=== PATIENT | female | born 1950 | race Two or more races ===

== ENCOUNTER → 2018-04-16 | Outpatient (CLI) | payer OTHER ==
[2013-10-14 21:40] VITALS: BP 182/83
--- NOTE | 2018-04-17 09:09 | RAD ---
DATE: 04/16/2018 EXAM: MAMMO FABIOLA SCREENING BILATERAL HISTORY: Routine screening COMPARISON: 07/05/2015 This study was interpreted with the benefit of Computerized Aided Detection (CAD). Breast Density: SCATTERED The breast parenchyma shows scattered fibroglandular densities. Breast parenchyma level B. FINDINGS: 2-D and 3-D tomosynthesis imaging was performed in CC and MLO projections. No new or enlarging breast densities are seen. Scattered benign type calcifications are present. No malignant type microcalcifications have developed. IMPRESSION: There is no mammographic evidence of malignancy in either breast. BI-RADS CATEGORY: 2 BENIGN FINDING(S) RECOMMENDED FOLLOW-UP: 12M 12 MONTH FOLLOW-UP PQRS compliance statement: Patient information was entered into a reminder system with a target due date for the next mammogram. Mammography is a sensitive method for finding small breast cancers, but it does not detect them all and is not a substitute for careful clinical examination. A negative mammogram does not negate a clinically suspicious finding and should not result in delay in biopsying a clinically suspicious abnormality. "Our facility is accredited by the [employer] Mammography Program."
== END | disposition home or self-care (01) ==
LOC: MAMMO 10:26
PROVIDERS: ATTEND Family Medicine
DX: Z12.31 Encounter for screening mammogram for malignant neoplasm of breast (principal)
CPT/HCPCS: 77063; 77067

== ENCOUNTER → 2019-04-17 | Outpatient (CLI) | payer MEDICARE, OTHER ==
[2013-10-14 21:40] VITALS: BP 182/83
--- NOTE | 2019-04-17 11:44 | RAD ---
Examination: 1. Bilateral digital diagnostic mammogram. 2. Limited left breast ultrasound. INDICATION: 68-year-old Montenegrin-speaking woman due for screening presents with a palpable lump in the left breast noticed over the past 3 weeks. COMPARISON: 04/16/2018 bilateral mammogram TECHNIQUE: CC and MLO views of both breasts were obtained with 2-D and 3-D technique and reviewed with computer-aided detection. Thereafter, targeted ultrasound of the left periareolar breast was performed. FINDINGS: Bilateral mammogram: Scattered fibroglandular densities. Negative right mammogram. Palpable marker in the periareolar left breast as indicated with a triangular marker overlies an isodense, partially circumscribed partly obscured 11 mm oval mass in the subareolar left breast whose appearance on the current study represents a change from the previous exam. Limited left breast ultrasound: Targeted ultrasound left periareolar breast identifies an antiparallel 11 mm superficial mass at the 1:00 position 1 cm from the nipple that correlates with the mammographic finding. This is suspicious. Biopsy is recommended. Sonographic survey left axilla reveals no adenopathy. IMPRESSION: Suspicious 11 mm mass in the left 11:00 position 1 cm from the nipple. Ultrasound-guided core needle biopsy is recommended. Discussed with patient and her through the use of a telephone interpreting service. BI-RADS Category 4 Findings suspicious for malignancy. Biopsy recommended. Patient entered into a reminder system with target due date for next mammogram.
== END | disposition home or self-care (01) ==
LOC: MAMMO 09:29
PROVIDERS: ATTEND Family Medicine
DX: R92.8 Other abnormal and inconclusive findings on diagnostic imaging of breast (principal)
CPT/HCPCS: 76641; 77066; G0279; 77062

== ENCOUNTER → 2019-04-29 | Outpatient (CLI) | payer MEDICARE ==
[2013-10-14 21:40] VITALS: BP 182/83
--- NOTE | 2019-04-29 12:32 | RAD ---
Examination: 1. Ultrasound-guided left breast core needle biopsy. 2. Left digital postprocedure mammogram. INDICATION: 68-year-old woman with a palpable lump in the periareolar left breast recommended for ultrasound-guided biopsy. COMPARISON: Left diagnostic mammogram of 04/17/2019 and left breast ultrasound of the same day. FINDINGS: Informed consent was obtained and an appropriate procedural pause observed. Patient was accompanied by her Japanese speaking daughter at this visit. Patient herself is Ukrainian-speaking but understands some Japanese. Using standard sterile technique, ultrasound guidance and local anesthesia, two 14-gauge core biopsy samples were obtained of the 11 mm antiparallel oval hypoechoic mass in the subareolar left breast and an S-shaped biopsy marker was deployed. Some brisk oozing was observed through the biopsy guide after the first biopsy sample so additional biopsy samples were not obtained beyond the second sample. The needle and biopsy marker deployment device was removed and hemostasis ensured with direct breast compression for 10 minutes after which the puncture site was dressed and a 2 view postprocedure mammogram was obtained. The left post procedure mammogram in the CC and MLO projections shows satisfactory deployment of the biopsy marker at the deep aspect of the subareolar left breast mass with no postbiopsy hematoma evident. The breast parenchyma is composed of scattered fibroglandular densities. Following confirmation of satisfactory biopsy marker placement, postprocedure instructions were reviewed and the patient discharged in stable condition to follow up with her primary care physician. IMPRESSION: 1. Successful ultrasound-guided left breast core needle biopsy of a suspicious mass in the subareolar left breast. Pathology results are pending. An addendum will be issued once pathology results become available. 2. Successful deployment of a biopsy marker in the deep aspect of the palpable mass in the periareolar left breast. No apparent postbiopsy hematoma. Electronically signed by: Lee Ann Marcum MD (04/29/2019 12:29 PM) [id number]
--- NOTE | 2019-05-01 17:06 | PATHOLOGY ---
[facility] Accession Number: [id number] . 01 Material submitted: . breast - LEFT BREAST 10C 1CMFN. Modifiers: left, 10:00 . Clinical history: . Left breast mass . 02 Diagnosis: Breast tissue, left breast 10:00 needle biopsies: - INVASIVE DUCTAL CARCINOMA WITH LOBULAR FEATURES, GRADE 2. SEE COMMENT. - DUCTAL CARCINOMA IN SITU, CRIBRIFORM TYPE, INTERMEDIATE GRADE. LBQ 05/01/2019 1507 Local . 02 Comment: Sections of the left breast mass at 10:00 needle biopsy reveal an invasive mammary carcinoma. The tumor cells are predominantly present in small solid nests and cords and show only focal tubule formation. The tumor is associated with a reactive desmoplastic stroma. Tumor cells show moderate nuclear pleomorphism and only occasional mitotic figures. There is associated intermediate grade cribriform ductal carcinoma in situ. The invasive carcinoma measures up to 0.7 cm in greatest dimension on the glass slide. There are no tumor associated calcifications. There is no lymphovascular tumor invasion. An immunoperoxidase stain for E-cadherin is obtained on block A1 and yields the following results: . E-cadherin (A1): Tumor cells positive . The morphologic and immunophenotypic findings are supportive of a diagnosis of an invasive ductal carcinoma with lobular features, grade 2. The case is also examined by Dr. Fine, who concurs with the diagnosis. Breast prognostic studies will be obtained, the results of which will be reported separately. (JPM/db; 04/30/2019) . Special stain performed: Immunoperoxidase stain for E-cadherin on A1. . 02 Electronically signed: . Vamshi Fernandes MD, Pathologist NPI- [id number] . 01 Gross description: . The specimen is received in formalin, labeled "Elfega Terrence, left breast". The specimen is additionally labeled on the requisition as, "left breast 10:00 1 cm from nipple". Received are two needle cores of fibrofatty tissue measuring 1.4 x 0.4 x 0.2 cm in aggregate dimensions. The specimen is submitted entirely in cassettes A1 and A2. The cold ischemic time is 5 minutes. The total formalin fixation time is 12 hours and 40 minutes. (CAA; 04/29/2019) QAC/QAC 04/29/2019 1527 Local . 02 Pathologist provided ICD-10: C50.912, D05.12 . 02 CPT . 649213, [id number] Specimen Comment: A courtesy copy of this report has been sent to [phone] Specimen Comment: [id number], Specimen Comment: Report sent to ,DR MARTELL / DR RICARDO Performed at: 01 [facility] [address], [place], [place] [id number] MD Osman Dow MD Phone: [phone] Performed at: 02 [facility] [address], [place] [id number] MD Vamshi Fernandes MD Phone: [phone]
== END ==
LOC: US 10:11
PROVIDERS: ATTEND Surgery
DX: N63.20 Unspecified lump in the left breast, unspecified quadrant (principal); C50.912 Malignant neoplasm of unspecified site of left female breast
CPT/HCPCS: 19083; 77065; 88305; 88342; C1713; 19081; 76942

== ENCOUNTER → 2019-06-04 | Outpatient (CLI) | payer MEDICARE ==
[2013-10-14 21:40] VITALS: BP 182/83
[~2019-06-04] MED LIST: ALBU2.5V8 INH; ATOR40TA59 PO; FLUT9.9S NS; GLIM4TAB PO; HYDR-3164 PO; LISI10TA2 PO; METF1000 PO; PIOG45TA40 PO
[2019-06-04 14:14] LABS: BASO # 0.1 x10^3/uL (0.0-0.2); BASO % 1 % (0-3); EOS # 0.1 x10^3/uL (0.0-0.7); EOS % 1 % (0-3); HEMATOCRIT 35.9 % (36.0-47.0); HEMOGLOBIN 12.1 g/dL (12.0-15.5); LYMPH # 2.5 x10^3/uL (1.0-4.8); LYMPH % 33 % (24-48); MEAN CORPUSCULAR HEMOGLOBIN 31 pg (25-35); MEAN CORPUSCULAR HGB CONC 34 g/dL (31-37); MEAN CORPUSCULAR VOLUME 92 fL (79-100); MONO # 0.5 x10^3/uL (0.0-1.1); MONO % 7 % (0-9); NEUT # 4.3 x10^3/uL (1.8-7.7); NEUT % 58 % (31-73); PLATELET COUNT 224 x10^3/uL (140-400); RED BLOOD COUNT 3.93 x10^6/uL (3.50-5.40); RED CELL DISTRIBUTION WIDTH 14.3 % (11.5-14.5); WHITE BLOOD COUNT 7.4 x10^3/uL (4.0-11.0)
[2019-06-04 14:23] LABS: ALBUMIN 3.7 g/dL (3.4-5.0); CALCIUM 9.4 mg/dL (8.5-10.1); CREATININE 0.6 mg/dL (0.6-1.0); GFR 99.4; POTASSIUM 4.1 mmol/L (3.5-5.1)
[2019-06-05 05:10] LABS: HEMOGLOBIN A1C 8.7 % (4.8-5.6)
== END | disposition home or self-care (01) ==
LOC: SURGPAT 13:30
PROVIDERS: ATTEND Surgery
DX: Z01.818 Encounter for other preprocedural examination (principal); C50.912 Malignant neoplasm of unspecified site of left female breast; Z88.8 Allergy status to other drugs, medicaments and biological substances
CPT/HCPCS: 36415; 80048; 82040; 83036; 85025

== ENCOUNTER 2019-06-09 07:34 | Day surgery (SDC) | payer MEDICARE ==
[~2019-06-09] VITALS: Ht 152.4 cm; Wt 79.0 kg
[~2019-06-09 07:34] MED LIST changes: -FLUT9.9S NS; -HYDR-3164 PO; +HYDROmorphone 2 MG/ML VIAL IV PRN; +LIDOCAINE 1% PF 2 ML VIAL. ID PRN; +MORPHINE SULFATE 2 MG/ML VIAL. IV PRN; +ONDANSETRON PF 4 MG/2 ML VIAL. IV PRN; +PROCHLORPERAZINE 10 MG/2 ML VIAL. IV PRN; +fentaNYL PF VIAL 100 MCG/2 ML VIAL IV PRN
[2019-06-09] MEDS ORDERED: FLUT9.9S NS (07:59)
[2019-06-09] MEDS: INSULIN LISPRO 100 UNIT/ML 3ML VIAL for OP,RR ONLY. SQ PRN (08:26)
[2019-06-09] MEDS: IV RINGERS,LACTATED 1000ML 1,000 ML IV SCH (08:26)
[2019-06-09] MEDS ORDERED: BUPIVACAINE-EPI 0.5%-1:200000 MPF 30 ML VIAL. ONE (08:49)
[2019-06-09] MEDS ORDERED: BUPIVACAINE MPF 0.5% 30 ML VIAL. ONE (08:49)
--- NOTE | 2019-06-09 09:18 | PDOC1 ---
History and Physical Date of Admission Date of Admission DATE: 06/09/19 TIME: 09:12 Identification/Chief Complaint Chief Complaint biopsy proven invasive carcinoma left breast Source Source: Caregiver, Chart review, Patient History of Present Illness History of Present Illness Ms Ocampo is a Nepali speaking lady with biopsy proven carcinoma of her left breast. She comes for "lumpectomy" with sentinel lymph node biopsy Past Medical History Cardiovascular: No pertinent hx Pulmonary: Asthma GI: Irritable bowel disease Hepatobiliary: Other (hypercholesterolemia) Endocrine: Diabetes Past Surgical History Past Surgical History: Tubal Ligation Family History Family History: No Significant Social History Smoke: No ALCOHOL: none Drugs: None Current Medications Current Medications Current Medications Ondansetron HCl (Zofran) 4 mg PRN Q6HRS PRN IV NAUSEA/VOMITING; Start 06/09/19 at 07:00; Stop 06/10/19 at 06:59 Fentanyl Citrate (Fentanyl 2ml Vial) 25 mcg PRN Q5MIN PRN IV MILD PAIN 1-3; Start 06/09/19 at 07:00; Stop 06/10/19 at 06:59 Fentanyl Citrate (Fentanyl 2ml Vial) 50 mcg PRN Q5MIN PRN IV MODERATE TO SEVERE PAIN; Start 06/09/19 at 07:00; Stop 06/10/19 at 06:59 Morphine Sulfate (Morphine Sulfate) 1 mg PRN Q10MIN PRN IV SEVERE PAIN 7-10; Start 06/09/19 at 07:00; Stop 06/10/19 at 06:59 Ringer's Solution 1,000 ml @ 30 mls/hr Q24H IV Last administered on 06/09/19at 08:26; Start 06/09/19 at 07:00; Stop 06/09/19 at 18:59 Lidocaine HCl (Xylocaine-Mpf 1% 2ml Vial) 2 ml PRN 1X PRN ID PRIOR TO IV START; Start 06/09/19 at 07:00; Stop 06/10/19 at 06:59 Hydromorphone HCl (Dilaudid) 0.5 mg PRN Q10MIN PRN IV SEV PAIN, Second choice; Start 06/09/19 at 07:00; Stop 06/10/19 at 06:59 Prochlorperazine Edisylate (Compazine) 5 mg PACU PRN PRN IV NAUSEA, MRX1; Start 06/09/19 at 07:00; Stop 06/10/19 at 06:59 Cefazolin Sodium (Ancef) 1 gm 1X PREOP PRN IVP PRIOR TO PROCEDURE; Start 06/08/19 at 07:15 Insulin Human Lispro (HumaLOG VIAL for OP,RR ONLY) 0-10 units PRN Q1HR PRN SQ PER PROTOCOL Last administered on 06/09/19at 08:26; Start 06/09/19 at 08:15; Stop 06/10/19 at 08:14 Bupivacaine HCl/ Epinephrine Bitart (Sensorcain-Epi 0.5%-1:440404 Mpf) 30 ml STK-MED ONCE .ROUTE ; Start 06/09/19 at 08:49; Stop 06/09/19 at 08:50; Status DC Isosulfan Blue (Lymphazurin Blue) 50 mg STK-MED ONCE SQ ; Start 06/09/19 at 08:49; Stop 06/09/19 at 08:50; Status DC Bupivacaine HCl (Sensorcaine Mpf 0.5%) 30 ml STK-MED ONCE .ROUTE ; Start 06/09/19 at 08:49; Stop 06/09/19 at 08:50; Status DC Active Scripts Active Reported Flonase Allergy Relief (Fluticasone Propionate) 9.9 Ml [employer].susp 2 Sprays NS DAILY Proair Hfa Inhaler (Albuterol Sulfate) 8.5 Gm Hfa.aer.ad 2 Puff INH PRN Q6HRS PRN Atorvastatin Calcium 40 Mg Tablet 1 Tab PO DAILY Actos (Pioglitazone Hcl) 45 Mg Tablet 1 Tab PO DAILY 30 Days Lisinopril 10 Mg Tablet 1 Tab PO DAILY Amaryl (Glimepiride) 4 Mg Tablet 1 Tab PO DAILY Glucophage (Metformin Hcl) 1,000 Mg Tablet 1,000 Mg PO BIDWMEALS Allergies Allergies: Coded Allergies: ibuprofen (Verified Allergy, Intermediate, Rash, 06/04/19) rapid heartrate ROS Review of System negative with exception of present complaints Physical Exam General: Alert HEENT: Atraumatic Lungs: Normal air movement Heart: RRR Breasts: Lt breast nml w/o mass (localization wire in place) Abdomen: Soft Extremities: No clubbing Skin: Other (warm, dry) Vitals Vitals Vital Signs Date Time Temp Pulse Resp B/P (MAP) Pulse Ox O2 Delivery O2 Flow Rate FiO2 06/09/19 08:05 97 78 16 178/79 97 Room Air 97.0 Labs Labs Laboratory Tests Test 06/09/19 08:05 Glucose (Fingerstick) 141 mg/dL (70-99) Laboratory Tests Test 06/09/19 08:05 Glucose (Fingerstick) 141 mg/dL (70-99) Images Images needle localization films reviewed VTE Prophylaxis Ordered VTE Prophylaxis Devices: Yes VTE Pharmacological Prophylaxi: No Assessment/Plan Assessment/Plan with her daughters help translating reviewed risks of her surgery including but not limited to bleeding, infection, need for further surgery questions answered she will proceed ARNAUD MARTELL MD Jun 09, 2019 09:18
[2019-06-09] MEDS ORDERED: ONDANSETRON PF 4 MG/2 ML VIAL. ONE (09:28)
[2019-06-09] MEDS ORDERED: SUCCINYLCHOLINE 200 MG/10 ML VIAL. ONE (09:28)
[2019-06-09] MEDS ORDERED: LIDOCAINE 2% PF 5 ML VIAL. ONE (09:28)
[2019-06-09] MEDS ORDERED: DEXAMETHASONE SOD PHOS 4 MG/ML VIAL ONE (09:28)
[2019-06-09] MEDS ORDERED: PROPOFOL 20 ML IV ONE (09:28)
[2019-06-09] MEDS ORDERED: fentaNYL PF VIAL 100 MCG/2 ML VIAL ONE (09:29)
[2019-06-09] MEDS: ceFAZolin SODIUM IV Push 1 GM VIAL. IVP PRN (09:50)
--- NOTE | 2019-06-09 09:57 | RAD ---
Examination: 1. Ultrasound-guided left breast needle localization with wire placement. 2. Left digital postprocedure mammogram. 3. Left breast radiopharmaceutical injection for sentinel node mapping. INDICATION: New diagnosis left breast invasive ductal carcinoma. Imaging guided needle localization for segmental mastectomy requested. COMPARISON: Ultrasound-guided left breast core needle biopsy of 04/29/2019 and post procedure mammogram that same day. FINDINGS: Informed consent was obtained and an appropriate procedural pause observed with the patient's daughter present by her request who also served as a maintenance service supervisor. Using standard sterile technique, ultrasound guidance and local anesthesia was utilized and directing a 5 cm Ivory needle through the biopsied mass under ultrasound guidance and a hookwire was deployed in satisfactory position. It is noted that the mass is extremely superficial, abutting the skin. Digital left postprocedure mammogram showed satisfactory positioning of the wire through the mass with the hook embedded in the mass itself and the thick portion of the wire slightly more lateral, closer to the puncture site. The S shaped biopsy marker is deep to the proximal aspect of the hook. The mass itself is difficult to distinguish from the surrounding scattered fibroglandular densities. Following confirmation of satisfactory wire placement, 0.7 mCi of lymphoseek radiopharmaceutical were administered in a single periareolar hypodermal injection at approximately 9:00 AM. Patient tolerated all procedures without incident. IMPRESSION: Successful left breast needle localization of a biopsy proven malignancy in the superior subareolar left breast and radiopharmaceutical injection for sentinel node mapping. A specimen radiograph is recommended. It should contain the biopsy marker, hookwire and density correlating with the targeted mass. Discussed with Dr. Cristobal by telephone at approximately 9:30 AM on June 09, 2019.
[2019-06-09] MEDS: ISOSULFAN BLUE 1% 50 MG/5 ML VIAL. SQ ONE (10:01)
[2019-06-09] MEDS: BUPIVACAINE MPF 0.5% 30 ML VIAL. IJ ONE (10:01)
[2019-06-09] MEDS ORDERED: ePHEDrine PF IN SALINE 50 MG/10 ML SYRINGE. IV ONE (10:18)
[2019-06-09] MEDS ORDERED: PHENYLEPHRINE in 0.9% NACL PF 1 MG/10 ML SYRINGE. IV ONE (10:18)
[2019-06-09] MEDS ORDERED: SEVOFLURANE 61 TO 120 MINUTES. IH ONE (10:55)
[2019-06-09] MEDS ORDERED: HYDR-3164 PO (11:12)
--- NOTE | 2019-06-09 11:14 | DISCH ---
DISCHARGE INSTRUCTIONS Condition on Discharge Condition on Discharge: Stable Activity After Discharge Activity Instructions for Disc: Activity as tolerated Lifting Instructions after Dis: No heavy lifting Driving Instructions after Dis: Do not drive Diet after Discharge Diet after Discharge: Diabetic No Calorie Level Wound Incision Care Wound/Incision Care: Ice to area for comfort, Keep wound/cast CDI Other wound/incision instructi: empty FELICIANO daily and record output Follow-Up Follow up with: Call office Sunday with FELICIANO output ARNAUD MARTELL MD Jun 09, 2019 11:14
--- NOTE | 2019-06-09 11:17 | PDOC ---
BRIEF OPERATIVE NOTE Date: Jun 09, 2019 Pre-Op Diagnosis invasive carcinoma left breast Post-Op Diagnosis same Procedure Performed left breast lumpectomy after needle localization, left axillary SLN biopsy Surgeon Levra SOLIS Anesthesia Type: General Blood Loss 25cc IV Fluid 750cc Specimens Obtained left axillary SLN, "hot" and blue left breast mass Findings negative SLN on frozen section breast specimen with mass and wire present Complications none ARNAUD MARTELL MD Jun 09, 2019 11:17
[2019-06-09 12:00] VITALS: BP 132/35
--- NOTE | 2019-06-09 13:18 | OP ---
DATE OF SURGERY: 06/09/2019 PREOPERATIVE DIAGNOSIS: Invasive carcinoma, left breast. POSTOPERATIVE DIAGNOSIS: Invasive carcinoma, left breast. PROCEDURES: 1. Left axillary sentinel lymph node biopsy. 2. Left breast lumpectomy after needle localization. SURGEON: Kristofer Martell MD ENVELOPE FOLDING MACHINE OPERATOR: IRMA King ANESTHESIA: General endotracheal. ESTIMATED BLOOD LOSS: 25 mL. INTRAVENOUS FLUIDS: 750 mL. INDICATIONS: The patient is a 68-year-old lady with biopsy-proven carcinoma of the left breast, brought for lumpectomy and sentinel node biopsy. OPERATIVE REPORT: The patient brought to the operating suite after explaining risks, benefits, and alternatives to her and her daughter who translated for us in the preop holding area. General endotracheal anesthetic administered. The left arm, breast and chest were prepped and draped in usual sterile fashion. A 4 mL of Lymphazurin was injected intradermally circumareolarly from 12-3 o'clock position corresponding to the quadrant containing the tumor. Breast was gently massaged for 5 minutes. Using the C-Trak probe, an area of activity in the left axilla was identified from the preop injection by Nuclear Medicine. Local anesthetic infiltrated, incision made and dissection carried down to a blue, "hot" lymph node, which was harvested and sent to pathology for frozen section. No remaining activity in the axilla was identified. We turned our attention to the breast. Plain Marcaine infiltrated circumareolarly from 3-12 o'clock. Incision made location wire delivered into the wound and the wire and surrounding mass was excised trying to establish clear margin just under the areola. Specimen sent to Radiology where specimen radiograph confirmed the presence of the guidewire, biopsy clip, and the mass. A 15-Croatian round Juanjo drain was brought through an inferolateral stab wound and left in the axilla, secured with a silk stitch. When a correct sponge count was obtained and hemostasis was present, the axillary wound was closed with subcuticular 4-0 Monocryl. Breast incision closed with interrupted 3-0 Vicryl on the breast tissue and a subcuticular 4-0 Monocryl in the skin. Sterile dressings applied. The patient awakened from her anesthetic and taken to the recovery room in satisfactory condition. KRISTOFER MARTELL MD DR: JYOTI/corinna JOB#: [id number] / [id number]
--- NOTE | 2019-06-09 13:31 | RAD ---
Left breast specimen radiograph INDICATION: Left breast lumpectomy for invasive ductal carcinoma. COMPARISON: Post procedure mammogram of earlier the same day following ultrasound-guided wire localization. FINDINGS: The surgical specimen is present on a grid where the S shaped biopsy marker is located at the 5H position. It is surrounded by density in the specimen that likely represents the localized tumor. The localizing wire passes through this density adjacent to the biopsy marker. IMPRESSION: The specimen contains the biopsy marker, hookwire and residual mass. Margins around the specimen are obscured by your breast tissue density. Discussed with Dr. Cristobal by telephone at approximately 10:50 AM on June 09, 2019
--- NOTE | 2019-06-12 16:06 | PATHOLOGY ---
[facility] Accession Number: [id number] . 01 Material submitted: . PART A: lymph node - LEFT AXILLARY SENTINEL LYMPH NODE,FS. Modifiers: left, axillary tail PART B: breast - LEFT BREAST MASS. Modifiers: left . 01 Clinical history: . Infiltrating ductal carcinoma left breast . 02 Frozen section diagnosis: . INTRAOPERATIVE CONSULTATION WITH FROZEN SECTION: (Dr. Vamshi Fernandes) . A. Left axillary sentinel lymph node: - Negative for tumor. . The results are reported to Dr. Cristobal in the operating room. (JPM:mml; 06/09/2019) . . FROZEN SECTION GROSS DESCRIPTION: A. Received fresh for intraoperative consultation is the "left axillary sentinel lymph node". This consists of an ovoid-shaped segment of yellow and mitchell fibrofatty tissue showing focal bluish discoloration, measuring up to 1.7 x 1.1 x 0.8 cm in greatest dimension. The segment is bisected. Sectioning reveals a yellow and pale bluish discolored cut surface. This is submitted in entirety for frozen section as FSA1. The tissue remaining from frozen section is submitted for permanent sections as A1. (JPM:mml; 06/09/2019) . . Frozen section performed at [facility], [address] [place] [address], [place] [address]. [facility] . 02 Diagnosis: A. Lymph node, left axillary sentinel lymph node biopsy: - Negative for tumor (0/1). . B. Breast tissue, wire localized left breast lumpectomy: - INVASIVE DUCTAL CARCINOMA WITH LOBULAR FEATURES, GRADE 2, FORMING A MASS MEASURING UP TO 1.0 CM IN GREATEST DIMENSION. - EXTENSIVE COMPONENT OF DUCTAL CARCINOMA IN SITU, CRIBRIFORM AND SOLID TYPE, LOW TO INTERMEDIATE GRADE. - INVASIVE CARCINOMA IS FOCALLY PRESENT AT THE INKED HISTOLOGIC MARGIN. - DCIS IS FOCALLY PRESENT AT THE INKED HISTOLOGIC MARGIN AND IS LESS THAN 1 MM FROM THE HISTOLOGIC MARGIN IN ADDITIONAL FOCI. - Previous biopsy site changes. - Fibrocystic changes. . Surgical Pathology Cancer Case Summary . Protocol posting date: March 2019 . INVASIVE CARCINOMA OF THE BREAST: Resection . Procedure ___ Wire-localized lumpectomy . Specimen Laterality ___ Left . + Tumor Site + ___ Clock position: 10 o'clock + ___ Distance from nipple: 1.0 cm . Tumor Size ___ Greatest dimension of largest invasive focus >1 mm: 10 mm . Histologic Type ___ Invasive ductal carcinoma with lobular features . Histologic Grade (Nicole Histologic Score) . Glandular (Acinar)/Tubular Differentiation ___ Score 3 (<10% of tumor area forming glandular/tubular structures) . Nuclear Pleomorphism ___ Score 2 (cells larger than normal with open vesicular nuclei, visible nucleoli, and moderate variability in both size and shape) . Mitotic Rate ___ Score 1 . Overall Grade ___ Grade 2 (scores of 6 or 7) . + Tumor Focality + ___ Single focus of invasive carcinoma . Ductal Carcinoma In Situ (DCIS) ___ Present + ___ Positive for extensive intraductal component (EIC) . + Size (Extent) of DCIS + Number of blocks with DCIS: 6 + Number of blocks examined: 7 . +Architectural Patterns + ___ Cribriform + ___ Solid . + Nuclear Grade + ___ Grade II (intermediate) . + Necrosis + ___ Not identified . + Lobular Carcinoma In Situ (LCIS) + ___ Not identified . Margins . Invasive Carcinoma Margins ___ Positive for invasive carcinoma, focal . DCIS Margins ___ Positive for DCIS . Regional Lymph Nodes ___ Uninvolved by tumor cells Total Number of Lymph Nodes Examined: 1 Number of [place] Nodes Examined: 1 . + Lymphovascular Invasion + ___ Not identified . Pathologic Stage Classification (pTNM, AJCC 8th Edition) . Primary Tumor (pT) ___ pT1b:Tumor >5 mm but < or = 10 mm in greatest dimension . . Regional Lymph Nodes (pN) ___ pN0:No regional lymph node metastasis identified or ITCs only# . + Additional Pathologic Findings (Note N) + Specify: See diagnosis. . + Microcalcifications + ___ Present in DCIS + ___ Present in invasive carcinoma + ___ Present in non-neoplastic tissue . (JPM:beni 06/12/2019) LBQ 06/12/2019 1439 Local . 02 Comment: The sentinel lymph node is examined at multiple levels. An immunoperoxidase stain for AE1/AE3 is also obtained and yields the following result: . AE1/AE3 (A1): Negative for tumor (0/1) . Thus, there is a single sentinel lymph node which is negative for tumor. (JPM/db; 06/10/2019) . 02 Electronically signed: . Vamshi Fernandes MD, Pathologist NPI- [id number] . 01 Gross description: . A. PLEASE SEE FROZEN SECTION GROSS DESCRIPTION . B. The specimen is received in formalin, labeled "Hardeep Ocampo, left breast mass with wire" and consists of an unoriented 9 g lumpectomy specimen measuring 5.3 x 3.4 x 1.0 cm with a metal localization wire protruding from one aspect. It is inked black and sectioned into 13 slices to reveal a pink mass in slices 10-11 measuring 0.6 x 0.6 cm. The mass grossly approaches the margin. The uninvolved parenchyma is dense white and fibrous with possible additional masses measuring up to 0.6 cm. The specimen is entirely submitted in B1-B7 with the mass in B6. . The specimen was obtained at 10:40 AM on 06/09/2019 and placed in formalin at 10:57 AM. The cold ischemic time is 17 minutes and the total formalin fixation time is greater than 6 hours but less than 72 hours. (SDY; 06/09/2019) SYU/SYU 06/09/2019 1524 Local . 02 Pathologist provided ICD-10: C50.912, D05.12, N60.12 . 02 CPT . 418426, 935018, [id number], [id number] Specimen Comment: A courtesy copy of this report has been sent to [phone] Specimen Comment: [id number] Specimen Comment: Report sent to / DR RICARDO Performed at: [address], [place], [place] [id number] MD Osman Dow MD Phone: [phone] Performed at: [address] [id number] MD Vamshi Fernandes MD Phone: [phone]
== END 2019-06-09 12:40 | disposition home or self-care (01) ==
LOC: SURG 07:34
PROVIDERS: ATTEND Surgery
DX: C50.912 Malignant neoplasm of unspecified site of left female breast (principal); R59.1 Generalized enlarged lymph nodes; J45.909 Unspecified asthma, uncomplicated; K58.9 Irritable bowel syndrome, unspecified; E11.9 Type 2 diabetes mellitus without complications; Z98.51 Tubal ligation status; Z88.8 Allergy status to other drugs, medicaments and biological substances; Z79.84 Long term (current) use of oral hypoglycemic drugs
CPT/HCPCS: 19301; 38525; 38900; 76098; 76942; 77065; 82962; 96374; A7015; A9520; J0330; J0690; J1100; J1815; J2370; J2405; J2704; J3010; J3490; Q9968; 38792

== ENCOUNTER → 2019-06-26 | Outpatient (CLI) | payer MEDICARE ==
[2019-06-09 12:00] VITALS: BP 132/35
[~2019-06-26] MED LIST changes: +FLUT9.9S NS; +HYDR-3164 PO; -HYDROmorphone 2 MG/ML VIAL IV PRN; -LIDOCAINE 1% PF 2 ML VIAL. ID PRN; -MORPHINE SULFATE 2 MG/ML VIAL. IV PRN; -ONDANSETRON PF 4 MG/2 ML VIAL. IV PRN; -PROCHLORPERAZINE 10 MG/2 ML VIAL. IV PRN; -fentaNYL PF VIAL 100 MCG/2 ML VIAL IV PRN
[2019-06-26 13:31] LABS: BASO % 0 % (0-3); EOS # 0.1 x10^3/uL (0.0-0.7); EOS % 2 % (0-3); HEMATOCRIT 36.6 % (36.0-47.0); HEMOGLOBIN 12.3 g/dL (12.0-15.5); LYMPH # 2.5 x10^3/uL (1.0-4.8); LYMPH % 35 % (24-48); MEAN CORPUSCULAR HEMOGLOBIN 31 pg (25-35); MEAN CORPUSCULAR HGB CONC 34 g/dL (31-37); MEAN CORPUSCULAR VOLUME 92 fL (79-100); MONO # 0.6 x10^3/uL (0.0-1.1); MONO % 9 % (0-9); NEUT # 3.9 x10^3/uL (1.8-7.7); NEUT % 54 % (31-73); PLATELET COUNT 274 x10^3/uL (140-400); RED BLOOD COUNT 3.99 x10^6/uL (3.50-5.40); RED CELL DISTRIBUTION WIDTH 14.3 % (11.5-14.5); WHITE BLOOD COUNT 7.2 x10^3/uL (4.0-11.0)
[2019-06-26 13:49] LABS: ALBUMIN 3.6 g/dL (3.4-5.0); CALCIUM 9.3 mg/dL (8.5-10.1); CREATININE 0.7 mg/dL (0.6-1.0); GFR 83.2; POTASSIUM 4.5 mmol/L (3.5-5.1)
== END | disposition home or self-care (01) ==
LOC: SURGPAT 12:23
PROVIDERS: ATTEND Surgery
DX: Z01.812 Encounter for preprocedural laboratory examination (principal); Z11.59 Encounter for screening for other viral diseases; C50.912 Malignant neoplasm of unspecified site of left female breast
CPT/HCPCS: 36415; 80048; 82040; 85025; 87635

== ENCOUNTER 2019-06-30 10:05 | Day surgery (SDC) | payer MEDICARE ==
[~2019-06-30] VITALS: Ht 152.4 cm; Wt 79.5 kg
[~2019-06-30 10:05] MED LIST changes: +ceFAZolin SODIUM IV Push 1 GM VIAL. IVP PRN
[2019-06-30] MEDS ORDERED: DEXAMETHASONE SOD PHOS 4 MG/ML VIAL ONE (10:20)
[2019-06-30] MEDS ORDERED: SEVOFLURANE 31 TO 60 MINUTES. IH ONE (10:20)
[2019-06-30] MEDS ORDERED: LIDOCAINE 2% PF 5 ML VIAL. ONE (10:20)
[2019-06-30] MEDS ORDERED: PROPOFOL 10 MG/ML (20ML) VIAL. IV ONE (10:20)
[2019-06-30] MEDS ORDERED: ONDANSETRON PF 4 MG/2 ML VIAL. ONE (10:20)
[2019-06-30] MEDS ORDERED: INSULIN LISPRO 100 UNIT/ML 3ML VIAL for OP,RR ONLY. SQ PRN (10:45)
[2019-06-30] MEDS ORDERED: IV RINGERS,LACTATED 1000ML 1,000 ML IV SCH (11:00)
[2019-06-30] MEDS ORDERED: BUPIVACAINE-EPI 0.5%-1:200000 MPF 30 ML VIAL. ONE (11:24)
[2019-06-30] MEDS ORDERED: PHENYLEPHRINE in 0.9% NACL PF 1 MG/10 ML SYRINGE. IV ONE (12:02)
--- NOTE | 2019-06-30 13:00 | DISCH ---
DISCHARGE INSTRUCTIONS Condition on Discharge Condition on Discharge: Stable Activity After Discharge Activity Instructions for Disc: Activity as tolerated Lifting Instructions after Dis: No heavy lifting Driving Instructions after Dis: Do not drive Diet after Discharge Diet after Discharge: Diabetic No Calorie Level Wound Incision Care Wound/Incision Care: Ice to area for comfort, Keep wound/cast CDI Follow-Up Follow up with: Levar 07/03 ARNAUD MARTELL MD June 30, 2019 13:00
--- NOTE | 2019-06-30 13:11 | PDOC ---
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
--- NOTE | 2019-06-30 13:19 | OP ---
DATE OF SURGERY: 06/30/2019 PREOPERATIVE DIAGNOSIS: Invasive carcinoma, left breast with positive margins on first excision. POSTOPERATIVE DIAGNOSIS: Invasive carcinoma, left breast with positive margins on first excision. PROCEDURE: Reexcision. SURGEON: Kristofer Martell MD PSYCH SPECIALIST: KRISTEN Knight ANESTHESIA: General LMA. ESTIMATED BLOOD LOSS: 10 mL. INTRAVENOUS FLUIDS: 700 mL. INDICATIONS: The patient is a 68-year-old lady with a previous excision of left breast cancer, however, margins were involved and she is brought back for reexcision. DESCRIPTION OF PROCEDURE: The patient brought to the operating suite, given a general LMA and the left breast was prepped and draped in usual sterile fashion. An elliptical skin incision including the nipple areolar complex, which had been drawn in the preoperative area with the patient and her daughter's approval, was infiltrated with local anesthetic and incised. Superior and inferior skin flaps were developed and the previous biopsy site and overlying skin were removed intact. Wound was irrigated with sterile water, checked for hemostasis and when present and a correct sponge count was obtained, the breast tissue was approximated with interrupted inverted 3-0 Vicryl. Skin incisions closed with a subcuticular 4-0 Monocryl. Sterile dressing applied. The patient awakened from her anesthetic and taken to the recovery room in satisfactory condition. KRISTOFER MARTELL MD DR: JYOTI/corinna JOB#: [id number] / [id number]
[2019-06-30] MEDS ORDERED: HYDROcodone/APAP 5/325MG 1 TAB TABLET PO ONE (13:45)
[2019-06-30 13:46] VITALS: BP 174/75
== END 2019-06-30 14:20 | disposition home or self-care (01) ==
LOC: SURG 10:05
PROVIDERS: ATTEND Surgery
DX: C50.912 Malignant neoplasm of unspecified site of left female breast (principal); I10 Essential (primary) hypertension; E78.00 Pure hypercholesterolemia, unspecified; J45.909 Unspecified asthma, uncomplicated; E66.9 Obesity, unspecified; Z68.34 Body mass index [BMI] 34.0-34.9, adult; Z79.899 Other long term (current) drug therapy; Z79.84 Long term (current) use of oral hypoglycemic drugs; Z98.42 Cataract extraction status, left eye; Z96.1 Presence of intraocular lens
CPT/HCPCS: 19120; 82962; J0690; J1100; J2370; J2405; J2704; J3490; J1815

== ENCOUNTER → 2019-10-27 | Outpatient (CLI) | payer MEDICARE ==
[~2019-10-27] MED LIST changes: -ceFAZolin SODIUM IV Push 1 GM VIAL. IVP PRN
--- NOTE | 2019-10-27 09:29 | KCIC ---
EXAM: Dual energy x-ray absorptiometry (DEXA). HISTORY: Left breast cancer, postmenopausal. COMPARISON: None available. TECHNIQUE: Dual energy x-ray absorptiometry of the lumbar spine and left hip was performed. Calculation of bone mineral density based on standard deviations above or below the expected young adult normal value (T-score) was completed. FINDINGS: The average bone mineral density in the 1st through 4th lumbar vertebrae is 0.947 g/cmxcm, corresponding with a T-score of -0.9. The average total bone mineral density in the left hip is 0.902 g/cmxcm, corresponding with a T-score of -0.3. IMPRESSION: Normal bone mineral density. Note: Definitions established by the World Health Organization: 1. Normal: T-score is -1.0 or above. 2. Osteopenia: T-score is between -1.0 and -2.5 . 3. Osteoporosis: T-score is -2.5 or below. Electronically signed by: Ana Plascencia MD (10/27/2019 9:27 AM) [id number]
== END | disposition home or self-care (01) ==
LOC: KCIC DEXA 08:07
PROVIDERS: ATTEND Internal Medicine Hematology & Oncology
DX: D05.12 Intraductal carcinoma in situ of left breast (principal)
CPT/HCPCS: 77080

== ENCOUNTER → 2019-11-03 | Outpatient (CLI) | payer MEDICARE ==
[2019-11-03 11:38] LABS: BASO % 1 % (0-3); EOS # 0.1 x10^3/uL (0.0-0.7); EOS % 2 % (0-3); HEMATOCRIT 34.6 % (36.0-47.0); HEMOGLOBIN 11.4 g/dL (12.0-15.5); LYMPH # 1.5 x10^3/uL (1.0-4.8); LYMPH % 28 % (24-48); MEAN CORPUSCULAR HEMOGLOBIN 31 pg (25-35); MEAN CORPUSCULAR HGB CONC 33 g/dL (31-37); MEAN CORPUSCULAR VOLUME 94 fL (79-100); MONO # 0.5 x10^3/uL (0.0-1.1); MONO % 10 % (0-9); NEUT # 3.2 x10^3/uL (1.8-7.7); NEUT % 59 % (31-73); PLATELET COUNT 236 x10^3/uL (140-400); RED BLOOD COUNT 3.67 x10^6/uL (3.50-5.40); RED CELL DISTRIBUTION WIDTH 14.1 % (11.5-14.5); WHITE BLOOD COUNT 5.4 x10^3/uL (4.0-11.0)
[2019-11-03 11:51] LABS: CALCIUM 9.3 mg/dL (8.5-10.1); CREATININE 0.7 mg/dL (0.6-1.0); POTASSIUM 3.9 mmol/L (3.5-5.1)
[2019-11-03 11:55] LABS: ALBUMIN 3.3 g/dL (3.4-5.0); ALBUMIN/GLOBULIN RATIO 0.8 (1.0-1.7); TOTAL BILIRUBIN 0.3 mg/dL (0.2-1.0); TOTAL PROTEIN 7.5 g/dL (6.4-8.2)
== END | disposition home or self-care (01) ==
LOC: ONCLAB 11:18
PROVIDERS: ATTEND Internal Medicine Hematology & Oncology
DX: C50.212 Malignant neoplasm of upper-inner quadrant of left female breast (principal)
CPT/HCPCS: 36415; 80053; 85025

== ENCOUNTER → 2020-03-15 | Outpatient (CLI) | payer MEDICARE ==
[~2020-03-15] MED LIST changes: +LISI10TA16 PO; -LISI10TA2 PO
--- NOTE | 2020-03-15 13:23 | RAD ---
DATE: 03/15/2020 12:20 PM EXAM: MAMMO FABIOLA SREE CASTREJON HISTORY: Patient is 69 years old and due for bilateral mammographic screening but presents for diagnostic imaging after left breast cancer diagnosis a year ago. COMPARISON: Ultrasound-guided left breast core needle biopsy of 06/09/2019, bilateral digital diagnostic mammogram of 04/17/2019 and left postprocedure mammogram of 04/29/2019 Bilateral CC and MLO views of the breasts were performed. Bilateral breast tomosynthesis was performed in CC and MLO projections. This study was interpreted with the benefit of Computerized Aided Detection (CAD). FINDINGS: Breast Density: SCATTERED The breast parenchyma shows scattered fibroglandular densities. Breast parenchyma level B Interval development of left breast skin thickening and trabecular coarsening, consistent with benign posttreatment changes. Right mammogram shows stable scattered benign calcifications. No suspicious masses, microcalcifications or architectural distortion is present to suggest malignancy in either breast. The visualized axillae are unremarkable. IMPRESSION: No mammographic evidence of malignancy. BI-RADS CATEGORY: 2 BENIGN FINDING(S) RECOMMENDED FOLLOW-UP: 12M 12 MONTH FOLLOW-UP Annual screening mammography is recommended, unless clinically indicated sooner based on symptoms or change in physical exam. PQRS compliance statement: Patient information was entered into a reminder system with a target due date for the next mammogram. Mammography is a sensitive method for finding small breast cancers, but it does not detect them all and is not a substitute for careful clinical examination. A negative mammogram does not negate a clinically suspicious finding and should not result in delay in biopsying a clinically suspicious abnormality. "Our facility is accredited by the [employer] Mammography Program."
== END ==
LOC: MAMMO 12:17
PROVIDERS: ATTEND Internal Medicine Hematology & Oncology
DX: C50.212 Malignant neoplasm of upper-inner quadrant of left female breast (principal); Z17.0 Estrogen receptor positive status [ER+]; R92.1 Mammographic calcification found on diagnostic imaging of breast
CPT/HCPCS: 77066; G0279; 77062

== ENCOUNTER → 2020-08-31 | Outpatient (CLI) | payer MEDICARE ==
--- NOTE | 2020-08-31 21:01 | KCIC ---
XR KNEE 3 VIEWS History: Chronic bilateral knee pain. Comparison: None. Technique: 3 views of the left knee. 3 views of the right knee. Findings: Osseous mineralization is normal. No fracture or dislocaton. Severe bilateral degenerative changes wi th complete loss of the medial tibiofemoral joint space bilaterally. Bilateral tricompartmental osteo phytes. Trace effusions. No focal soft tissue swelling. Impression: 1. Severe bilateral knee osteoarthritis. Electronically signed by: Berlin Menezes MD (08/31/2020 8:59 PM) [facility]
== END ==
LOC: KCIC 12:39
PROVIDERS: ATTEND Family Medicine
DX: M17.0 Bilateral primary osteoarthritis of knee (principal); M25.762 Osteophyte, left knee; M25.761 Osteophyte, right knee
CPT/HCPCS: 73562-50